=== PATIENT | female | born 1965 | race Two or more races ===

== ENCOUNTER 2021-07-15 16:29 | Emergency (ER) | payer OTHER ==
[~2021-07-15] VITALS: Ht 152.4 cm; Wt 81.6 kg
[2021-07-15 16:33] VITALS: BP 115/66
--- NOTE | 2021-07-15 16:36 | NUR ---
PT SENT TO LOBBY
[2021-07-15 16:56] LABS: BASOPHILS % (AUTO) 0.3 % (0.0-2.0); EOSINOPHILS # (AUTO) 0.1 K/uL (0-0.4); HEMATOCRIT 35.8 % (36-48); LYMPHOCYTES % (AUTO) 35.2 % (20.5-51.1); MEAN CORPUSCULAR HEMOGLOBIN 30 pg (27-31); MEAN CORPUSCULAR HGB CONC 34 g/dL (33-37); MEAN CORPUSCULAR VOLUME 89.9 fL (80-94); MONOCYTES # (AUTO) 0.7 K/uL (0.8-1.0); MONOCYTES % (AUTO) 8.5 % (1.7-9.3); NEUTROPHILS # (AUTO) 4.7 K/uL (1.8-7.7); PLATELET COUNT (AUTO) 324 K/uL (140-450); RED BLOOD CELL COUNT(AUTO) 3.99 MIL/uL (4.20-5.40); RED CELL DISTRIBUTION WIDTH 12.9 % (11.6-13.7); WHITE BLOOD COUNT (AUTO) 8.5 K/uL (4.8-10.8)
[2021-07-15 16:57] LABS: APPEARANCE,URINE CLEAR (CLEAR); BILIRUBIN,URINE NEGATIVE (NEGATIVE); BLOOD, URINE TRACE-I (NEGATIVE); COLOR,URINE YELLOW (YELLOW); LEUKOCYTE ESTERASE ,URINE NEGATIVE (NEGATIVE); NITRITE, URINE NEGATIVE (NEGATIVE); UGLUCOSE NEGATIVE (NEGATIVE)
--- NOTE | 2021-07-15 17:00 | NUR ---
56/F PRESENTS TO ED WITH C/O FLANK PAIN AND DYSURIA X1 MONTH. PATIENT STATES SHE HAS SEEN HER PCP FOR SAME SYMPTOMS AND WAS GIVEN MEDICATION WITH NO RELIEF. PATIENT STATES PAIN HAS BEEN WORSENING, REPORTS DYSURIA SYMPTOMS ARE INTERMITTENT, DENIES HEMATURIA, FEVERS, N/V/D.
--- NOTE | 2021-07-15 17:04 | NUR ---
PT AMBULATED TO ER BED 12 WITH STEADY GAIT
[2021-07-15] MEDS ORDERED: KETOROLAC 30 MG/ML VIAL IM ONE (17:10)
[2021-07-15 17:29] LABS: ALBUMIN 3.9 g/dL (3.4-5.0); CARBON DIOXIDE 31.9 mmol/L (21-32); CREATININE 0.7 mg/dL (0.6-1.3); POTASSIUM 3.9 mmol/L (3.5-5.1); TOTAL BILIRUBIN 0.2 mg/dL (0.0-1.0)
--- NOTE | 2021-07-15 19:22 | NUR ---
Pt report given to ALLISON TRONCOSO. Transfer of care at this time.
--- NOTE | 2021-07-15 19:50 | NUR ---
pt is awake and alert, sitting up in bed. deneis pain and discomfort. all needs met at this time. bed locked in lowest position, side rails x1.
--- NOTE | 2021-07-15 20:00 | NUR ---
Helen romero in ED - 07/15/21 at 2019 by [facility] pt taken to ct.
[2021-07-15 20:23] VITALS: BP 118/67
--- NOTE | 2021-07-15 20:23 | NUR ---
Patient discharged with v/s stable. Written and verbal after care instructions given and explained. Patient verbalized understanding. Ambulatory with steady gait. All questions addressed prior to discharge. Advised to follow up with PMD.
== END 2021-07-15 20:23 | disposition home or self-care (01) ==
LOC: MED 16:29
DX: N20.0 Calculus of kidney (principal)
CPT/HCPCS: 36415; 74176; 80053; 81003; 85025; 87086; 96372; 99284; J1885

== ENCOUNTER 2022-02-26 09:22 | Emergency (ER) | payer OTHER ==
[~2022-02-26] VITALS: Ht 144.8 cm; Wt 80.7 kg
[2022-02-26 09:25] VITALS: BP 133/67
--- NOTE | 2022-02-26 09:30 | NUR ---
PT AMBULATED TO BED 3
--- NOTE | 2022-02-26 09:32 | NUR ---
PT AMBUILATED TO BATHROOM
--- NOTE | 2022-02-26 10:18 | NUR ---
pt c/o ruq abdominal pain radiating to back x3 months, seen nephrology told she has kidney stones, pt states pain has been constant and is coming to er d/t sharonrin no longer working for pain.
[2022-02-26 13:02] LABS: BASOPHILS % (AUTO) 0.1 % (0.0-2.0); EOSINOPHILS # (AUTO) 0.1 K/uL (0-0.4); EOSINOPHILS % (AUTO) 0.5 % (0.0-4.0); HEMATOCRIT 36.4 % (36-48); HEMOGLOBIN 11.9 g/dL (12.0-16.0); LYMPHOCYTES # (AUTO) 1.3 K/uL (2.5-16.5); MEAN CORPUSCULAR HEMOGLOBIN 30 pg (27-31); MEAN CORPUSCULAR HGB CONC 33 g/dL (33-37); MEAN CORPUSCULAR VOLUME 90.3 fL (80-94); MONOCYTES # (AUTO) 0.9 K/uL (0.8-1.0); MONOCYTES % (AUTO) 6.1 % (1.7-9.3); NEUTROPHILS % (AUTO) 84.3 % (42.2-75.2); PLATELET COUNT (AUTO) 283 K/uL (140-450); RED BLOOD CELL COUNT(AUTO) 4.04 MIL/uL (4.20-5.40); RED CELL DISTRIBUTION WIDTH 13.2 % (11.6-13.7); WHITE BLOOD COUNT (AUTO) 14.3 K/uL (4.8-10.8)
[2022-02-26] MEDS ORDERED: ONDANSETRON 4 MG ODT PO ONE (13:20)
[2022-02-26 13:24] LABS: ALBUMIN 3.7 g/dL (3.4-5.0); ANION GAP 12.8 (8-16); CARBON DIOXIDE 27.9 mmol/L (21-32); CREATININE 0.8 mg/dL (0.6-1.3); POTASSIUM 3.7 mmol/L (3.5-5.1); TOTAL BILIRUBIN 0.4 mg/dL (0.0-1.0)
--- NOTE | 2022-02-26 13:32 | NUR ---
pt c/o nausea, medicated per order.
[2022-02-26 14:17] LABS: APPEARANCE,URINE CLEAR (CLEAR); BILIRUBIN,URINE NEGATIVE (NEGATIVE); BLOOD, URINE NEGATIVE (NEGATIVE); COLOR,URINE YELLOW (YELLOW); LEUKOCYTE ESTERASE ,URINE NEGATIVE (NEGATIVE); NITRITE, URINE NEGATIVE (NEGATIVE); UGLUCOSE NEGATIVE (NEGATIVE)
[2022-02-26] MEDS ORDERED: NAPR-1871 PO (14:53)
[2022-02-26 15:05] VITALS: BP 131/70
== END 2022-02-26 15:04 | disposition home or self-care (01) ==
LOC: MED 09:22
DX: R10.11 Right upper quadrant pain (principal); Z88.0 Allergy status to penicillin; Z88.5 Allergy status to narcotic agent; Z87.442 Personal history of urinary calculi
CPT/HCPCS: 36415; 76705; 80053; 81003; 83690; 85025; 99284; Q0092; Q0162